=== PATIENT | male | born 1985 | race Hispanic/Latino ===

== ENCOUNTER → 2021-09-05 | Outpatient (CLI) | payer BC | END | disposition home or self-care (01) | LOC: RAH 08:12 | PROVIDERS: ATTEND Family Medicine | DX: I10 Essential (primary) hypertension (principal) | CPT/HCPCS: 71046 ==

== ENCOUNTER 2023-08-26 15:39 | Emergency (ER) | payer BC, OTHER ==
[~2023-08-26] VITALS: Ht 172.7 cm; Wt 90.7 kg
[2023-08-26] MEDS: ACETAMINOPHEN 500 MG TABLET PO ONE (16:04)
[2023-08-26] MEDS ORDERED: BUTA-271 PO (16:44)
[2023-08-26 17:05] VITALS: BP 125/71; PULSE 88; RESP 20; O2SAT 99
== END 2023-08-26 17:11 | disposition home or self-care (01) ==
LOC: EDH 15:39
DX: G44.209 Tension-type headache, unspecified, not intractable (principal); F41.9 Anxiety disorder, unspecified; I10 Essential (primary) hypertension
CPT/HCPCS: 70450